=== PATIENT | female | born 1975 | race Caucasian/White ===

== ENCOUNTER 2018-11-29 19:41 | Emergency (ER) | payer BC ==
[~2018-11-29] VITALS: Ht 152.4 cm; Wt 78.0 kg
[2018-11-29] MEDS ORDERED: IBUPROFEN 600MG TABLET PO ONE (22:45)
[2018-11-29 23:22] VITALS: BP 125/81
== END 2018-11-29 23:23 | disposition home or self-care (01) ==
LOC: ER 19:41
DX: M54.5 Low back pain (principal); V43.52XA Car driver injured in collision with other type car in traffic accident, initial encounter; Y93.89 Activity, other specified; Y92.488 Other paved roadways as the place of occurrence of the external cause
CPT/HCPCS: 99282